=== PATIENT | female | born 1950 | race Caucasian/White ===

== ENCOUNTER 2019-07-22 06:25 | Day surgery (SDC) | payer MEDICARE, BC ==
[~2019-07-22] VITALS: Ht 165.1 cm; Wt 73.5 kg
[~2019-07-22 06:25] MED LIST: OS-CAL500 MG PO; PROBIOTIC BLEN1 EACH; VITAMIN D250000 UNIT PO
[2019-07-22 06:57] LABS: APTT 27.8 SECONDS (22.8-39.4); INR 0.97 (0.85-1.17); PROTIME 12.4 SECONDS (11.6-15.0)
[2019-07-22 07:40] VITALS: BP 141/72; Ht 165.1 cm; Wt 73.5 kg
[2019-07-22 07:46] LABS: HEMATOCRIT 40.2 % (36.0-48.0); HEMOGLOBIN 13.2 g/dL (12-16); MCH 32.1 pg (26.0-34.0); MCHC 32.8 g/dL (31.0-37.0); MCV 97.8 fL (80.0-100.0); MEAN PLATELET VOLUME 10.2 fL (7.4-10.4); RBC 4.11 10x6/uL (4.00-5.40); RDW 13.5 % (11.5-14.5); WBC 5.3 10x3/uL (4.8-10.8)
[2019-07-22] MEDS ORDERED: ULTRAM50 MG PO (09:47)
--- NOTE | 2019-07-22 11:47 | NUR ---
1026-REC'D FROM RR. AWAKE AND ALERT,DRESSING TO LEFT GROIN WITH DERMABOND AND STERI STRIPS-CDI. DENIES PAIN.VSS. REVIEWED POST OPERATIVE DUSCHARGE CRITERIA. VERBALIZED UNDERSTANDING,SPOUSE AT BEDSIDE. CL IN EASY REACH.
--- NOTE | 2019-07-22 11:48 | NUR ---
1115-DISCHARGE CRITERIA MET.DRESSING TO GROIN CDI.DENIES PAIN.VSS. REMOVED IV WITH CATH INTACT,DISPOSED INTO SHARPS.COVERED WITH GUAZE SECURED WITH BANDAID.REVIEWED POST OPERATIVE INSTRUCTIONS AND FOLLOW UP APPOINTMENT.VERBALIZED UNDERSTANDING.
--- NOTE | 2019-07-22 11:50 | NUR ---
1128-PT DRESSED. ESCORTED OUT VIA W/C BY VOLUNTEER WITH SPOUSE AWAITING TO DRIVE HOME. DISCHARGE PAPERWORK IN HAND.
--- NOTE | 2019-07-22 13:28 | OP ---
PATIENT NAME: SABRINA CONTRERAS MEDICAL RECORD: [id number] :46 LOCATION:D.OPS ADMISSION DATE: SURGEON: DELMY YOUNGBLOOD MD DATE OF OPERATION: 07/22/2019 SURGEON: Delmy Youngblood MD PREOPERATIVE DIAGNOSIS: Epidermoid cyst of the left groin. POSTOPERATIVE DIAGNOSIS: Epidermoid cyst of the left groin. PROCEDURE PERFORMED: Excisional biopsy of left groin epidermoid cyst. WOUND CLASS: Clean. SPECIMENS: Epidermoid cyst 4 x 3 x 3 cm. OPERATIVE COURSE: After consent was obtained, the patient was taken to the operating room and placed in the supine position on the operating table. Anesthesia was given. A timeout was taken to confirm the correct patient and procedure. The left groin was prepped and draped in a typical sterile fashion. A 20 cc of lidocaine were injected. An elliptical incision was made around the epidermoid cyst of approximately 4 cm in length and 3 cm in width. The skin was incised with a #15 blade scalpel. Dissection continued through the dermis with electrocautery. The subcutaneous tissue was dissected with electrocautery. The specimen was circumferentially dissected with electrocautery, it was 4 x 3 x 3 cm. It was passed off the field and sent for permanent pathology. The wound was irrigated. The wound was closed in 3 layers. Deep subcutaneous was closed with 3-0 Vicryl suture, superficial subQ was closed with 3-0 Vicryl suture. The skin was closed with a 4-0 Monocryl in a subcuticular fashion. Incision was reinforced with Mastisol and Steri-Strips. At the end of the case, all needle and instrument counts were correct. No complications occurred. The patient was transferred to recovery room in satisfactory condition. 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
== END 2019-07-22 11:28 | disposition home or self-care (01) ==
LOC: D.OPS 06:25 → D.PAN 09:00 → D.OPS 09:00 → D.PAN 09:15 → D.OPS 11:28
PROVIDERS: Anesthesiology; ATTEND Surgery
DX: L72.8 Other follicular cysts of the skin and subcutaneous tissue (principal)

== ENCOUNTER → 2020-03-16 12:18 | Outpatient (CLI) | payer MEDICARE, BC ==
[2019-07-22 07:40] VITALS: BMI 27.0
[~2020-03-16 12:18] MED LIST changes: +ULTRAM50 MG PO
== END | disposition home or self-care (01) ==
LOC: D.HCCECHO 12:18
PROVIDERS: ATTEND Internal Medicine Cardiovascular Disease
DX: R00.2 Palpitations (principal)